=== PATIENT | female | born 1995 | race Caucasian/White ===

== ENCOUNTER 2020-12-19 09:44 | Outpatient (REF) | payer OTHER, SELFPAY ==
[2020-12-19 15:35] LABS: Calculated LDL 97 mg/dL (<100); Cholesterol 196 mg/dL (<200); Glucose 84 mg/dL (74-106); HDL Cholesterol 74 mg/dL (40-60); Triglyceride 125 mg/dL (<150)
== END 2020-12-19 09:45 | disposition home or self-care (01) ==
LOC: NCHCN 09:44
PROVIDERS: PCP Internal Medicine; Visit Provider Nurse Practitioner Family
DX: Z00.00 Encounter for general adult medical examination without abnormal findings (principal); Z13.1 Encounter for screening for diabetes mellitus; Z13.220 Encounter for screening for lipoid disorders
CPT/HCPCS: 80061; 82947

== ENCOUNTER 2021-07-24 19:13 | Outpatient (REF) | payer OTHER, SELFPAY ==
[2021-07-24 20:59] LABS: Abs Immature Grans 0.03 10^3/uL (0.0-0.06); Absolute Basophil Count 0.03 10^3/uL (0.0-0.2); Absolute Eosinophil Count 0.13 10^3/uL (0.0-0.7); Absolute Lymphocyte Count 2.74 10^3/uL (1.2-3.4); Absolute Monocyte Count 0.53 10^3/uL (0.1-0.8); Absolute Neutrophil Count 7.24 10^3/uL (1.2-6.7); Basophils % 0.3; Eosinophils % 1.2; HCT 44.3 % (36.0-46.0); HGB 14.2 g/dL (11.2-15.7); Immature Grans % 0.3; Lymphocytes % 25.6; MCH 29.6 pg (27.0-33.0); MCHC 32.1 % (32.0-36.0); MCV 92.5 fL (80-95); Neutrophils % 67.6; Nucleated RBC 0 %; Platelet Count 139 10^3/uL (130-400); RBC 4.79 10^6/uL (3.93-5.22); RDW 12.5 % (11.7-14.6); RDW-SD 43.1 fL
[2021-07-24 21:18] LABS: TSH 3.31 uIU/mL (0.36-3.74)
== END 2021-07-24 19:14 | disposition home or self-care (01) ==
LOC: NCHCN 19:13
PROVIDERS: PCP Internal Medicine; Visit Provider Internal Medicine
DX: R53.83 Other fatigue (principal); D69.3 Immune thrombocytopenic purpura
CPT/HCPCS: 84443; 85025